=== PATIENT | male | born 1975 | race Caucasian/White ===

== ENCOUNTER 2020-09-28 13:40 | Inpatient (IN) | payer OTHER ==
[~2020-09-28] VITALS: Ht 172.7 cm; Wt 140.8 kg
[2020-09-28 13:40] VITALS: BP 123/73
[2020-09-28 14:22] LABS: ABSOLUTE BASOPHILS 0.1 thou/uL (0.0-0.2); ABSOLUTE EOSINOPHILS 0.1 thou/uL (0.0-0.7); ABSOLUTE LYMPHOCYTES 1.5 thou/uL (0.8-5.3); ABSOLUTE MONOCYTES 0.6 thou/uL (0.0-1.2); BASOPHILS 0.5 %; EOSINOPHILS 0.9 %; HEMOGLOBIN 16.5 gm/dL (14.0-18.0); LYMPHOCYTES 10.4 %; MCH 29.6 pg (26.0-34.0); MCHC 32.9 g/dL (28.0-37.0); MCV 89.8 fL (80.0-100.0); MONOCYTES 4.2 %; MPV 6.4 fl. (7.2-11.1); NUCLEATED RBCS 0 /100WBC; PLATELET COUNT* 311 thou/uL (150-400); RBC 5.57 mil/uL (4.50-6.00); WBC 14.3 thou/uL (4.0-11.0)
[2020-09-28 14:30] LABS: CALCIUM 9.1 mg/dL (8.5-10.1); CREATININE 0.9 mg/dL (0.6-1.3); POTASSIUM 4.1 mmol/L (3.5-5.1)
[2020-09-28 14:35] LABS: ALBUMIN 3.4 g/dL (3.4-5.0); TOTAL BILIRUBIN 0.5 mg/dL (<0.1-1.0); TOTAL PROTEIN 7.8 g/dL (6.4-8.2)
[2020-09-28 19:43] LABS: URINE BILIRUBIN NEGATIVE (Negative); URINE BLOOD NEGATIVE (Negative); URINE CLARITY CLEAR; URINE COLOR YELLOW; URINE GLUCOSE-RANDOM NEGATIVE (Negative); URINE KETONES NEGATIVE (Negative); URINE LEUKOCYTES NEGATIVE (Negative); URINE NITRITE NEGATIVE (Negative); URINE PROTEIN NEGATIVE (Negative); URINE UROBILINOGEN 0.2 E.U./dl (0.2-1.0)
[2020-09-28 20:48] LABS: AMP/METHAMP Negative (Negative); BARBITURATES Negative (Negative); BENZODIAZEPINES Negative (Negative); COCAINE Negative (Negative); METHADONE Negative (Negative); OPIATES POSITIVE (Negative); PCP Negative (Negative); THC Negative (Negative)
[2020-09-28 21:32] VITALS: BP 103/65
[2020-09-28 22:00] VITALS: BP 125/77
[2020-09-28 22:20] LABS: HEMATOCRIT 47.3 % (42.0-52.0); HEMOGLOBIN 15.3 gm/dL (14.0-18.0); MCHC 32.3 g/dL (28.0-37.0); MCV 89.6 fL (80.0-100.0); MPV 6.4 fl. (7.2-11.1); RBC 5.27 mil/uL (4.50-6.00); RDW-CV 13.9 % (10.5-14.5); WBC 14.5 thou/uL (4.0-11.0)
[2020-09-28 22:31] LABS: ALBUMIN 3.2 g/dL (3.4-5.0); CALCIUM 8.9 mg/dL (8.5-10.1); CREATININE 0.9 mg/dL (0.6-1.3); MAGNESIUM 2.1 mg/dL (1.8-2.4); PHOSPHORUS* 4.5 mg/dL (2.5-4.9); POTASSIUM 3.9 mmol/L (3.5-5.1); TOTAL BILIRUBIN 0.5 mg/dL (<0.1-1.0); TOTAL PROTEIN 7.4 g/dL (6.4-8.2)
[2020-09-29 03:22] VITALS: BP 102/66
[2020-09-29 04:03] LABS: HEMATOCRIT 44.6 % (42.0-52.0); HEMOGLOBIN 14.7 gm/dL (14.0-18.0); MCH 29.5 pg (26.0-34.0); MCHC 32.9 g/dL (28.0-37.0); MCV 89.7 fL (80.0-100.0); MPV 6.6 fl. (7.2-11.1); RBC 4.97 mil/uL (4.50-6.00); RDW-CV 14.2 % (10.5-14.5); WBC 12.2 thou/uL (4.0-11.0)
[2020-09-29 04:10] LABS: ALBUMIN 3.1 g/dL (3.4-5.0); CALCIUM 8.8 mg/dL (8.5-10.1); CREATININE 0.9 mg/dL (0.6-1.3); MAGNESIUM 2.2 mg/dL (1.8-2.4); PHOSPHORUS* 4.4 mg/dL (2.5-4.9); POTASSIUM 3.9 mmol/L (3.5-5.1); TOTAL BILIRUBIN 0.6 mg/dL (<0.1-1.0); TOTAL PROTEIN 7.1 g/dL (6.4-8.2)
[2020-09-29 08:30] VITALS: BP 110/75; BP 120/51
[2020-09-29 12:54] VITALS: BP 134/88
[2020-09-29 18:46] VITALS: BP 122/76
[2020-09-29 20:00] VITALS: BP 128/76
[2020-09-30] VITALS (7 sets, daily range): BP systolic 116–137; BP diastolic 73–92
[2020-09-30 09:48] LABS: ABSOLUTE EOSINOPHILS 0.3 thou/uL (0.0-0.7); ABSOLUTE LYMPHOCYTES 1.3 thou/uL (0.8-5.3); ABSOLUTE MONOCYTES 0.5 thou/uL (0.0-1.2); ABSOLUTE NEUTROPHILS 7.1 thou/uL (1.6-8.1); BASOPHILS 0.2 %; EOSINOPHILS 3.7 %; HEMATOCRIT 43.7 % (42.0-52.0); HEMOGLOBIN 14.6 gm/dL (14.0-18.0); LYMPHOCYTES 14.4 %; MCH 30.1 pg (26.0-34.0); MCHC 33.4 g/dL (28.0-37.0); MCV 90.1 fL (80.0-100.0); MONOCYTES 5.8 %; MPV 6.5 fl. (7.2-11.1); NUCLEATED RBCS 0 /100WBC; PLATELET COUNT* 284 thou/uL (150-400); POLYS 75.9 %; RBC 4.85 mil/uL (4.50-6.00); RDW-CV 13.8 % (10.5-14.5); WBC 9.3 thou/uL (4.0-11.0)
[2020-09-30 10:14] LABS: CALCIUM 8.8 mg/dL (8.5-10.1); CREATININE 0.8 mg/dL (0.6-1.3); POTASSIUM 4.1 mmol/L (3.5-5.1); TOTAL BILIRUBIN 0.6 mg/dL (<0.1-1.0); TOTAL PROTEIN 7.3 g/dL (6.4-8.2)
[2020-10-01 04:25] LABS: HEMATOCRIT 43.4 % (42.0-52.0); HEMOGLOBIN 14.3 gm/dL (14.0-18.0); MCH 29.1 pg (26.0-34.0); MCHC 32.8 g/dL (28.0-37.0); MCV 88.7 fL (80.0-100.0); MPV 6.5 fl. (7.2-11.1); RBC 4.89 mil/uL (4.50-6.00); RDW-CV 13.7 % (10.5-14.5); WBC 9.1 thou/uL (4.0-11.0)
[2020-10-01 04:54] LABS: CALCIUM 8.9 mg/dL (8.5-10.1); CREATININE 0.7 mg/dL (0.6-1.3); MAGNESIUM 2.3 mg/dL (1.8-2.4); PHOSPHORUS* 2.8 mg/dL (2.5-4.9); POTASSIUM 3.7 mmol/L (3.5-5.1)
[2020-10-01 04:59] VITALS: BP 147/69
[2020-10-01 08:30] VITALS: BP 128/88
[2020-10-01 12:00] VITALS: BP 121/86
[2020-10-01 17:20] VITALS: BP 128/88
== END 2020-10-01 17:40 | disposition home or self-care (01) | DRG 394 ==
LOC: M.ERS 13:40 → M.TBA-ER 17:51 → M.2W 19:14
PROVIDERS: Physician Assistant; ADMIT Surgery; ATTEND Surgery
DX: K55.9 Vascular disorder of intestine, unspecified (principal); K56.609 Unspecified intestinal obstruction, unspecified as to partial versus complete obstruction; K43.9 Ventral hernia without obstruction or gangrene; Z20.828 Contact with and (suspected) exposure to other viral communicable diseases; Z72.89 Other problems related to lifestyle